=== PATIENT | female | born 1985 | race Caucasian/White ===

== ENCOUNTER 2017-04-23 06:08 | Inpatient (IN) | payer BC ==
[~2017-04-23] VITALS: Ht 170.2 cm; Wt 90.0 kg
[~2017-04-23 06:08] MED LIST: VITAFOL-OB+DHA1 EACH PO
--- NOTE | 2017-04-24 09:00 | PR ---
[facility] [address] [facility] [place], [place] [address] Signed PP Progress Notes Datetime Report Generated by CPN: 04/24/2017 08:59 SUBJECTIVE: [id number] Pain: Within normal limits Pain Comments: Little sleep overnight. Nausea/Vomiting: Denies Vital Signs: [id number] Vital Signs: Reviewed; Within Normal Limits EXAM: [id number] Cardiovascular: Not Done Respiratory: Not Done Abdomen/Uterus: Abnormal Lochia: Normal Vulva/Perineum: Not Done Breasts: Not Done CVA Tenderness: Not Done Extremities: Normal Incision: Not Applicable Progress: Normal Exam Comments: Fundus firm, NT @ U-1. H/H 11.4/34.5, WBC 14.7, plat 273k IMPRESSION/PLAN/PROCEDURES: [id number] Impression: Normal progression Plan: Continue present management Procedures: None Progress Notes: Doing well. Will continue present management. Signing Physician: Michelle Felipe MD CC: *Electronically Signed* 04/24/17 0859 MICHELLE FELIPE MD PATIENT NAME: KRIS BALTAZAR PROGRESS NOTE DATE OF : 89 PHYSICIAN: MICHELLE FELIPE MD RPT #: [id number] REPORT IS CONFIDENTIAL AND NOT TO BE RELEASED WITHOUT AUTHORIZATION
--- NOTE | 2017-04-25 08:52 | PR ---
[facility] [address] [facility] [place], [place] [address] Signed PP Progress Notes Datetime Report Generated by CPN: 04/25/2017 08:52 SUBJECTIVE: [id number] Pain: Within normal limits Pain Comments: Little sleep overnight. Nausea/Vomiting: Denies Vital Signs: [id number] Vital Signs: Reviewed; Within Normal Limits EXAM: [id number] Cardiovascular: Not Done Respiratory: Not Done Abdomen/Uterus: Abnormal Lochia: Normal Vulva/Perineum: Not Done Breasts: Not Done CVA Tenderness: Not Done Extremities: Normal Incision: Not Applicable Progress: Normal Exam Comments: Fundus firm, NT @ U-1. IMPRESSION/PLAN/PROCEDURES: [id number] Impression: Normal progression Plan: Discharge Procedures: None Progress Notes: Doing well. She would like D/C today. Signing Physician: Michelle Felipe MD CC: *Electronically Signed* 04/25/1752 MICHELLE FELIPE MD PATIENT NAME: KRIS BALTAZAR PROGRESS NOTE DATE OF : 89 PHYSICIAN: MICHELLE FELIPE MD RPT #: [id number] REPORT IS CONFIDENTIAL AND NOT TO BE RELEASED WITHOUT AUTHORIZATION
== END 2017-04-25 13:05 | disposition home or self-care (01) | DRG 775 ==
LOC: FBC 06:08 → MS 23:47 → FBC 23:57
PROVIDERS: ADMIT Obstetrics & Gynecology
PROC: 0KQM0ZZ Repair Perineum Muscle, Open Approach (ICD-10-PCS; principal; 2017-04-23)
PROC: 10E0XZZ Delivery of Products of Conception, External Approach (ICD-10-PCS; principal; 2017-04-23)
PROC: 10907ZC Drainage of Amniotic Fluid, Therapeutic from Products of Conception, Via Natural or Artificial Opening (ICD-10-PCS; principal; 2017-04-23)
PROC: 00HU33Z Insertion of Infusion Device into Spinal Canal, Percutaneous Approach (ICD-10-PCS; 2017-04-23)
PROC: 3E0R3BZ Introduction of Anesthetic Agent into Spinal Canal, Percutaneous Approach (ICD-10-PCS; 2017-04-23)
DX: O69.1XX0 Labor and delivery complicated by cord around neck, with compression, not applicable or unspecified (principal); O70.1 Second degree perineal laceration during delivery; Z37.0 Single live birth; Z3A.40 40 weeks gestation of pregnancy
CPT/HCPCS: 01960; 36415; 85027; J2405; J2590; J3010

== ENCOUNTER 2020-03-08 08:34 | Day surgery (SDC) | payer BC ==
[~2020-03-08] VITALS: Ht 170.2 cm; Wt 79.5 kg
[~2020-03-08 08:34] MED LIST changes: +ALLERGY RELIEF10 M1 PO; +LEXAPRO10 MG PO; +SKYLA1 EACH XX
--- NOTE | 2020-03-08 10:22 | NUR ---
03/08/20 1022 Sheets,Aidee 1008 PT ARRIVED TO PACU ON 3L VIA NC, VSS. PT ASLEEP. PT NONAROUSABLE TO TACTILE STIMULI. RESP EVEN AND UNLABORED.
--- NOTE | 2020-03-08 11:09 | NUR ---
PT ARRIVES TO DS RM 6 FROM PACU DROWSY. PT AROUSES BY OPENINIG EYES WITH VERBAL STIMULATION, ABLE TO DENY PAIN OR NAUSEA. PT ENCOURAGED TO PASS FLATUS WITH URGE. PT QUICKLY FALLS BACK ASLEEP WITH NO STIMULATION. CALL LIGHT WITHIN REACH, CURTAIN LEFT OPEN.
--- NOTE | 2020-03-08 12:30 | NUR ---
ELYSIA 1205: PATIENT WAKES EASILY WHEN I ENTER HER ROOM. SHE REPORTS "I'M SO TIRED." PATIENT'S DISCHARGE INSTRUCTIONS ARE GIVEN AND SHE VERBALIZES UNDERSTANDING. PATIENT IS GETTING DRESSED. SHE TRANSFERS HERSELF TO THE WHEELCHAIR AND THEN TO PERSONAL VEHICLE AND SHE TOLERATES THAT WELL.
--- NOTE | 2020-03-08 16:33 | OR ---
[facility] [address] [place], [place] [address] Signed DATE OF OPERATION: 03/08/2020 SURGEON: Holly Nunez MD PREOPERATIVE DIAGNOSES: 1. Alternating constipation and diarrhea with change in bowel habits. 2. Bloating. 3. Fecal urgency. POSTOPERATIVE DIAGNOSIS: Unremarkable terminal ileum, colon, and rectum. PROCEDURE: Colonoscopy with cold biopsies of the terminal ileum and the colon. ESTIMATED BLOOD LOSS: None. INDICATIONS: Kris is a 34-year-old female, asked to see me for colonoscopy. Starting last year, she has been having trouble with alternating constipation and diarrhea. She had a lot of bloating and fecal urgency, this represents a change in bowel habits. She has been quite anxious and on Lexapro. 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 There was obviously concern for irritable bowel syndrome. There is no family history of colon cancer or polyps. There is no inflammatory bowel disease in the family. In the office, I gave her a pamphlet on colonoscopy. We looked at that together along with the risks including, but not limited to gas bloating, crampy abdominal pain, bleeding, perforation requiring surgery, and missed diagnosis. We also discussed the need for IV conscious sedation. She had expressed understanding and wished to proceed. DESCRIPTION OF PROCEDURE: Kris was taken into our endoscopy suite and placed in the left lateral decubitus position. She was given a total of 10 mg of Versed and 200 mcg of fentanyl. Although, somewhat sedated, she was still awake and talking and having too much pain to advance the scope beyond the mid left colon. Consequently, we had an anesthesia provider come and add propofol, which worked out quite nicely. On digital rectal exam, we found no unusual pathology. She had good sphincter tone. Perineal body was intact. Adult colonoscope had been introduced and advanced under direct visualization of camera up into the cecum itself. The addition of propofol and mild abdominal compression helped Electronically Signed By: HOLLY NUNEZ MD 03/08/20 1633 PATIENT NAME: KRIS BALTAZAR OPERATIVE REPORT DATE OF : 89 REPORT #: [id number] PHYSICIAN: HOLLY NUNEZ MD PCP: LIGIA RIVERO PAC REPORT IS CONFIDENTIAL AND NOT TO BE RELEASED WITHOUT AUTHORIZATION [facility] [address] [place], [place] [address] Signed to advance the scope quite readily. Her prep was quite excellent. We could easily see the appendiceal orifice and ileocecal valve. We turned the scope up into the terminal ileum about 15 cm or so. We took a couple of biopsies of the terminal ilium for pathologic review, they looked quite healthy to us. The scope was withdrawn back into the cecum. The entire colon was quite healthy. We took several random biopsies throughout the colon for pathologic review. The rectum was unremarkable. Upon retroflexion of scope, there was no additional pathology noted above the anal canal. After this, the gas was suctioned out. The colonoscope removed. Kris tolerated the procedure quite well. RECOMMENDATIONS: I will see Kris back in my office in 7 to 14 days to review her results. It looks like irritable bowel syndrome is her most likely diagnosis. Holly Nunez MD ALB/MODL /[id number] cc: Holly Nunez MD Copies: HOLLY NUNEZ MD ~ Electronically Signed By: HOLLY NUNEZ MD 03/08/20 1633 PATIENT NAME: KRIS BALTAZAR OPERATIVE REPORT DATE OF : 89 REPORT #: [id number] PHYSICIAN: HOLLY NUNEZ MD PCP: LIGIA RIVERO PAC REPORT IS CONFIDENTIAL AND NOT TO BE RELEASED WITHOUT AUTHORIZATION
--- NOTE | 2020-03-10 11:15 | PATH ---
[facility] [address] [place], [place] [address] Signed SPECIMEN(S): A TERMINAL ILEUM SPECIMEN(S): B COLON BIOPSY SPECIMEN SOURCE: A. TERMINAL ILEUM B. COLON BIOPSY CLINICAL HISTORY: Anemia, diarrhea. Postop: Biopsy for history of diarrhea unremarkable. MICROSCOPIC DESCRIPTION: Histologic sections of all submitted blocks are examined by light microscopy. These findings, together with the gross examination, support the pathologic diagnosis. FINAL PATHOLOGIC DIAGNOSIS: A. Terminal ileum, biopsy: - Ileal mucosa with no histopathologic abnormality. - Negative for active inflammation or granulomata. - Negative for dysplasia or malignancy. B. Colon, biopsy: - Colonic mucosa with no histopathologic abnormality. - Negative for active, chronic, or microscopic colitis. - Negative for dysplasia or malignancy. NAL:cml:C2NR GROSS DESCRIPTION: Two specimens are received in two containers, labeled "RG." A. The specimen, labeled "RG," and designated on the requisition "terminal ileum biopsy," is received in formalin and consists of one fragment of pink-enamorado tissue (0.5 x 0.3 x 0.2 cm). The specimen is submitted entirely in cassette (A1). B. The specimen, labeled "RG," and designated on the requisition "random colon biopsy," is received in formalin and consists of four fragments of pink-enamorado tissue (0.7 x 0.6 x 0.3 cm in aggregate). The specimen is submitted entirely in cassette (B1). AC (under the direct supervision of a pathologist) The Gross Description was prepared using a voice recognition system. The report was reviewed for accuracy; however, sound-alike word errors, addition and/or deletions may occur. If there is any question about this report, please contact Client Services. PATIENT NAME: KRIS BALTAZAR PATHOLOGY DATE OF : 89 REPORT #: [id number] PHYSICIAN: ANKIT URIARTE PCP: LIGIA RIVERO PAC REPORT IS CONFIDENTIAL AND NOT TO BE RELEASED WITHOUT AUTHORIZATION [facility] [address] [place] [address] Signed PERFORMING LABORATORY: The technical component was performed by [employer] [facility], [address] [place] [address] ([employer] Operator: Daphney Maldonado MD; CLIA# [id number]). Professional interpretation was performed by [facility], [address] [place] [id number] (CLIA# [id number]). Diagnostician: Shelley Rodriguez MD Pathologist Electronically Signed 03/10/2020 Copies: ~ PATIENT NAME: KRIS BALTAZAR PATHOLOGY DATE OF : 89 REPORT #: [id number] PHYSICIAN: ANKIT URIARTE PCP: LIGIA RIVERO PAC REPORT IS CONFIDENTIAL AND NOT TO BE RELEASED WITHOUT AUTHORIZATION
== END 2020-03-08 12:15 | disposition home or self-care (01) ==
LOC: OPS 08:34 → DS 08:41 → OPS 09:45 → DS 09:45 → OPS 12:15
PROVIDERS: ATTEND Colon & Rectal Surgery
PROC: 0DBE8ZX Excision of Large Intestine, Via Natural or Artificial Opening Endoscopic, Diagnostic (ICD-10-PCS; 2020-03-08)
PROC: 0DBB8ZX Excision of Ileum, Via Natural or Artificial Opening Endoscopic, Diagnostic (ICD-10-PCS; principal; 2020-03-08 09:45)
DX: K59.00 Constipation, unspecified (principal); R19.7 Diarrhea, unspecified; R14.0 Abdominal distension (gaseous); R15.2 Fecal urgency; K21.9 Gastro-esophageal reflux disease without esophagitis; F41.8 Other specified anxiety disorders; G43.009 Migraine without aura, not intractable, without status migrainosus; Z79.899 Other long term (current) drug therapy; Z90.49 Acquired absence of other specified parts of digestive tract; Z88.0 Allergy status to penicillin
CPT/HCPCS: 84703; J2001; J2250; J2704; J3010; J7121